=== PATIENT | female | born 1970 | race Caucasian/White ===

== ENCOUNTER 2017-10-30 19:14 | Emergency (ER) | payer OTHER ==
[~2017-10-30] VITALS: Ht 160 cm; Wt 84.8 kg
[2017-10-30] MEDS ORDERED: ZESTRIL10 MG PO (20:09)
[2017-10-30] MEDS ORDERED: HYDROCHLOROTH12.5 M1 PO (20:09)
[2017-10-30] MEDS ORDERED: TOPROL XL100 M1 PO (20:09)
== END 2017-10-30 22:45 | disposition home or self-care (01) ==
LOC: ER 19:14
DX: S93.492A Sprain of other ligament of left ankle, initial encounter (principal); X50.3XXA Overexertion from repetitive movements, initial encounter; Y93.89 Activity, other specified; Y92.832 Beach as the place of occurrence of the external cause; Y99.8 Other external cause status